=== PATIENT | female | born 1990 | race American Indian/Alaskan Native ===

== ENCOUNTER 2019-02-24 22:45 | Emergency (ER) | payer OTHER, BC ==
[2019-02-24 23:22] VITALS: BP 118/77
[2019-02-25] MEDS ORDERED: HYDROcodone/ACETAMINOPHEN 5-325 MG TAB PO ONE (00:23)
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
== END 2019-02-25 01:20 | disposition home or self-care (01) ==
LOC: ED 22:45
DX: R07.89 Other chest pain (principal); F17.200 Nicotine dependence, unspecified, uncomplicated; F12.10 Cannabis abuse, uncomplicated
CPT/HCPCS: 93005; 93010; 99282